=== PATIENT | male | born 1965 | race Caucasian/White ===

== ENCOUNTER 2019-04-30 13:58 | Emergency (ER) | payer OTHER ==
[~2019-04-30] VITALS: Ht 182.8 cm; Wt 145.1 kg
[~2019-04-30 13:58] MED LIST: DAYPRO600 M1 PO; MEDROL DOSEPAK4 MG PO; VICODIN 500 MG-1 TAB PO
[2019-04-30] MEDS ORDERED: CLINDAMYCIN HC300 MG PO (14:26)
== END 2019-04-30 14:32 | disposition home or self-care (01) ==
LOC: ED 13:58
DX: K02.9 Dental caries, unspecified (principal); F17.200 Nicotine dependence, unspecified, uncomplicated; Z88.0 Allergy status to penicillin

== ENCOUNTER 2020-09-05 07:25 | Emergency (ER) | payer OTHER ==
[~2020-09-05] VITALS: Ht 182.8 cm; Wt 158.8 kg
[~2020-09-05 07:25] MED LIST changes: +CLINDAMYCIN HC300 MG PO
[2020-09-05] MEDS ORDERED: NAPROXEN250 MG PO (07:56)
[2020-09-05] MEDS ORDERED: SEPTDS PO (07:56)
[2020-09-05] MEDS ORDERED: TYLENOL325 M1 PO (07:56)
== END 2020-09-05 08:23 | disposition home or self-care (01) ==
LOC: ED 07:25
DX: L02.416 Cutaneous abscess of left lower limb (principal); I10 Essential (primary) hypertension; F17.200 Nicotine dependence, unspecified, uncomplicated; Z88.0 Allergy status to penicillin; Z79.899 Other long term (current) drug therapy; Z90.49 Acquired absence of other specified parts of digestive tract

== ENCOUNTER 2021-04-26 18:34 | Emergency (ER) | payer OTHER ==
[~2021-04-26 18:34] MED LIST changes: +NAPROXEN250 MG PO; +SEPTDS PO; +TYLENOL325 M1 PO
[2021-04-26] MEDS ORDERED: CORTISPORIN OP7.5 ML OPH (22:33)
[2021-04-26] MEDS ORDERED: CIPRO500 MG PO (22:53)
== END 2021-04-26 22:35 | disposition home or self-care (01) ==
LOC: ED 18:34
DX: H60.92 Unspecified otitis externa, left ear (principal); Z88.0 Allergy status to penicillin; Z79.2 Long term (current) use of antibiotics; Z79.899 Other long term (current) drug therapy; Z90.49 Acquired absence of other specified parts of digestive tract

== ENCOUNTER 2022-08-06 14:52 | Emergency (ER) | payer OTHER ==
[~2022-08-06] VITALS: Wt 181.9 kg
[~2022-08-06 14:52] MED LIST changes: +CIPRO500 MG PO; +CORTISPORIN OP7.5 ML OPH
[2022-08-06 15:43] LABS: BASO % 0.4 % (0.0-1.0); EOS # 0.1 10*3/uL (0.0-0.4); EOS % 1.4 % (1.0-4.0); HEMATOCRIT 39.3 % (42.0-52.0); LYMPH # 2.1 10*3/uL (1.3-4.4); LYMPH % 21.9 % (27.0-41.0); MEAN CELL VOLUME 97.8 fl (80.0-94.0); MEAN CORPUSCULAR HGB 32.1 pg (27.0-31.0); MEAN CORPUSCULAR HGB CONC 32.8 g/dl (33.0-37.0); MEAN PLATELET VOLUME 9.7 fl (9.6-12.3); MONO # 0.6 10*3/uL (0.1-1.0); MONO % 6.6 % (3.0-9.0); NEUT # 6.7 10*3/uL (2.3-7.9); NEUT % 69.3 % (47.0-73.0); PLATELET COUNT AUTOMATED 278 10*3/uL (130-400); RED BLOOD COUNT 4.02 10*6/uL (4.50-5.90); RED CELL DISTRI WIDTH 14.8 % (0-14.5); WHITE BLOOD COUNT 9.6 10*3/uL (4.8-10.8)
[2022-08-06 15:57] LABS: ACT PARTIAL THROMBO TIME 27.9 SECONDS (20.0-32.1); INTERNATIONAL NORM RATIO 1.2 (2.0-3.5)
[2022-08-06 16:01] LABS: ALKALINE PHOSPHATASE 101 U/L (46-116); BUN 12 mg/dl (9-23); CHLORIDE 102 mmol/L (98-107); LIPASE 23 U/L (12-53); POTASSIUM 3.7 mmol/L (3.4-5.1); SGPT/ALT 24 U/L (10-49); TOTAL PROTEIN 7.5 gm/dL (6.0-8.0)
== END 2022-08-06 17:35 | disposition short-term general hospital (02) ==
LOC: ED 14:52
PROVIDERS: Emergency Medicine
DX: I62.9 Nontraumatic intracranial hemorrhage, unspecified (principal); Z88.0 Allergy status to penicillin; Z90.49 Acquired absence of other specified parts of digestive tract; Z98.890 Other specified postprocedural states